=== PATIENT | male | born 1940 | race Caucasian/White ===

== ENCOUNTER 2020-02-24 17:11 | Inpatient (IN) | payer MEDICARE, OTHER ==
[~2020-02-24] VITALS: Ht 185.4 cm; Wt 104.2 kg
[2020-02-24] MEDS ORDERED: MORPHINE SULFATE 4 MG/ML, 1ML ONE (18:18)
[2020-02-24] MEDS ORDERED: ONDANSETRON 2MG/ML, 2ML ONE (18:18)
[2020-02-24 18:29] LABS: BASOPHILS # (AUTO) 0.03 x10^3/uL (0-0.1); BASOPHILS % (AUTO) 0 % (0-1); EOSINOPHILS # (AUTO) 0.18 x10^3/uL (0-0.4); EOSINOPHILS % (AUTO) 2 % (1-7); LYMPHOCYTES % (AUTO) 18 % (22-44); MD NO; MEAN CORPUSCULAR HEMOGLOBIN 29.9 pg (27.5-34.5); MEAN CORPUSCULAR HGB CONC 33.3 g/dL (33.2-36.2); MEAN CORPUSCULAR VOLUME 89.9 fL (81-97); MEAN PLATELET VOLUME 8.9 fL (7.4-10.4); MONOCYTES # (AUTO) 0.47 x10^3/uL (0.2-0.8); MONOCYTES % (AUTO) 6 % (2-9); NEUTROPHILS # (AUTO) 5.78 x10^3/uL (1.8-6.8); NEUTROPHILS % (AUTO) 74 % (42-75); PLATELET COUNT 196 x10^3/uL (130-400); RED BLOOD COUNT 5.37 x10^6/uL (4.38-5.82)
[2020-02-24] MEDS ORDERED: ONDANSETRON 2MG/ML, 2ML IVPush ONE (18:30)
[2020-02-24] MEDS ORDERED: SODIUM CHLORIDE FLUSH 10ML SYR IVF ONE (18:30)
[2020-02-24] MEDS ORDERED: SODIUM CHLORIDE 0.9% 1,000ML IVBOLUS ONE (18:30)
[2020-02-24] MEDS ORDERED: MORPHINE SULFATE 4 MG/ML, 1ML IVPush PRN (18:30)
[2020-02-24 18:41] LABS: ALANINE AMINOTRANSFERASE 24 U/L (12-78); ALBUMIN 3.6 g/dL (3.4-5.0); ANION GAP 6 mmol/L (5-15); CALCIUM 8.9 mg/dL (8.5-10.1); CHLORIDE 106 mmol/L (98-107); CREATININE 1.12 mg/dL (0.7-1.3)
[2020-02-24 18:43] LABS: ALKALINE PHOSPHATASE 77 U/L (45-117); BILIRUBIN,TOTAL 0.7 mg/dL (0.2-1.0); TOTAL PROTEIN 7.5 g/dL (6.4-8.2)
--- NOTE | 2020-02-24 19:00 | NUR ---
PT TO ROOM 9 PER WHEELCHAIR. PT C/O RIGHT FLANK PAIN, AND WAS SENT TO HAVE A CT. PT WAS SENT HERE AFTER RESULTS WERE DONE. PT UNSURE OF WHAT THE ENTIRE CT WAS, BUT WAS TOLD BY ER , THAT NEW SCANS WOULD HAVE TO BE DONE, THEY DID NOT SEND ANY FILMS WITH HIM. IV PLACED, ATTACHED TO MONITOR, GOWN ON, BLANKETS APPLIED, GRAND DAUGHTER AT BEDSIDE. BLOOD DRAWN.
[2020-02-24] MEDS ORDERED: OMNIPAQUE 350 MG/ML, 100ML BOTTLE ONE (19:26)
--- NOTE | 2020-02-24 19:56 | NUR ---
PT BLOOD PRESSURE IS RUNNING HIGH. DR. YOUNG NOTIFIED, NO NEW ORDERS AT THIS TIME.
[2020-02-24] MEDS ORDERED: PIPERACILLIN/TAZO/PMX 3.375GM 50 ML IV ONE ×2 (20:00→21:30)
[2020-02-24 20:16] LABS: MICROSCOPIC NOT IND
[2020-02-24] MEDS ORDERED: PIPERACILLIN/TAZO/PMX 3.375GM 50 ML ONE (20:18)
[2020-02-24 20:20] LABS: CULTURE INDICATED? NO
[2020-02-24] MEDS ORDERED: SODIUM CHLORIDE 0.9% 1,000 ML IV SCH (20:20)
--- NOTE | 2020-02-24 20:31 | NUR ---
PT SENT TO OR WITH OR NURSE, AND FAMILY MEMBER. PT HAS NEW IV STARTED, AND UNASYN SENT.
[2020-02-24 21:07] VITALS: BP 205/94
[2020-02-24] MEDS: hydrALAzine 20 MG/ML, 1ML IVPush PRN (21:19)
[2020-02-24] MEDS: morphine SULFATE 10 MG/ML, 1ML IVPush PRN (21:46)
[2020-02-24 22:34] VITALS: BP 177/87
[2020-02-25] VITALS (8 sets, daily range): BP systolic 169–217; BP diastolic 84–135
[2020-02-25] MEDS: morphine SULFATE 10 MG/ML, 1ML IVPush PRN ×4 (02:23→20:22)
[2020-02-25 05:45] LABS: ANION GAP 5 mmol/L (5-15); CALCIUM 8.3 mg/dL (8.5-10.1); CHLORIDE 108 mmol/L (98-107); CREATININE 1.15 mg/dL (0.7-1.3)
[2020-02-25 06:23] LABS: BASOPHILS # (AUTO) 0.05 x10^3/uL (0-0.1); BASOPHILS % (AUTO) 1 % (0-1); EOSINOPHILS # (AUTO) 0.27 x10^3/uL (0-0.4); EOSINOPHILS % (AUTO) 4 % (1-7); LYMPHOCYTES # (AUTO) 1.74 x10^3/uL (1-3.4); LYMPHOCYTES % (AUTO) 23 % (22-44); MD NO; MEAN CORPUSCULAR HEMOGLOBIN 30.1 pg (27.5-34.5); MEAN CORPUSCULAR HGB CONC 33.2 g/dL (33.2-36.2); MEAN CORPUSCULAR VOLUME 90.8 fL (81-97); MEAN PLATELET VOLUME 9.2 fL (7.4-10.4); MONOCYTES # (AUTO) 0.68 x10^3/uL (0.2-0.8); MONOCYTES % (AUTO) 9 % (2-9); NEUTROPHILS # (AUTO) 4.74 x10^3/uL (1.8-6.8); NEUTROPHILS % (AUTO) 63 % (42-75); PLATELET COUNT 177 x10^3/uL (130-400); RED BLOOD COUNT 4.82 x10^6/uL (4.38-5.82)
[2020-02-25] MEDS: D5%-0.45NACL+KCL 20MEQ 1,000 ML IV SCH ×2 (09:03→19:49)
[2020-02-25] MEDS: hydrALAzine 20 MG/ML, 1ML IVPush PRN ×2 (09:20→14:44)
[2020-02-25] MEDS: ENOXAPARIN 40 MG/0.4 ML SQ SCH (15:44)
[2020-02-25] MEDS ORDERED: hydrALAzine 20 MG/ML, 1ML IV ONE (19:00)
[2020-02-25] MEDS: METOPROLOL SUCCINATE 25 MG TAB.ER.24H PO SCH (21:44)
[2020-02-26 00:53] VITALS: BP 176/103
[2020-02-26] MEDS: morphine SULFATE 10 MG/ML, 1ML IVPush PRN ×4 (01:25→23:03)
[2020-02-26] MEDS: hydrALAzine 20 MG/ML, 1ML IVPush PRN ×3 (01:25→23:27)
[2020-02-26 02:00] VITALS: BP 147/75
[2020-02-26 05:49] LABS: BASOPHILS # (AUTO) 0.03 x10^3/uL (0-0.1); BASOPHILS % (AUTO) 0 % (0-1); EOSINOPHILS # (AUTO) 0.02 x10^3/uL (0-0.4); EOSINOPHILS % (AUTO) 0 % (1-7); LYMPHOCYTES # (AUTO) 0.97 x10^3/uL (1-3.4); LYMPHOCYTES % (AUTO) 13 % (22-44); MD NO; MEAN CORPUSCULAR HEMOGLOBIN 30.4 pg (27.5-34.5); MEAN CORPUSCULAR HGB CONC 33.2 g/dL (33.2-36.2); MEAN CORPUSCULAR VOLUME 91.4 fL (81-97); MEAN PLATELET VOLUME 8.7 fL (7.4-10.4); MONOCYTES # (AUTO) 0.58 x10^3/uL (0.2-0.8); MONOCYTES % (AUTO) 7 % (2-9); NEUTROPHILS % (AUTO) 80 % (42-75); PLATELET COUNT 193 x10^3/uL (130-400); RED BLOOD COUNT 5.12 x10^6/uL (4.38-5.82); RED CELL DISTRIBUTION WIDTH 14.9 % (9.4-14.8)
[2020-02-26 05:56] LABS: ANION GAP 8 mmol/L (5-15); CALCIUM 8.6 mg/dL (8.5-10.1); CHLORIDE 107 mmol/L (98-107)
[2020-02-26] MEDS: D5%-0.45NACL+KCL 20MEQ 1,000 ML IV SCH (05:56)
[2020-02-26 05:58] LABS: CREATININE 1.14 mg/dL (0.7-1.3)
[2020-02-26 07:19] VITALS: BP 178/91
[2020-02-26] MEDS: METOPROLOL SUCCINATE 25 MG TAB.ER.24H PO SCH ×2 (07:48→20:28)
[2020-02-26] MEDS ORDERED: POLYETHYLENE GLYCOL 17 GM PACKET PO SCH (12:00)
[2020-02-26] MEDS: SENNA/DOCUSATE TABLET PO SCH (13:05)
[2020-02-26] MEDS ORDERED: ENALAPRILAT 1.25 MG/ML, 2ML IV PRN (14:00)
[2020-02-26] MEDS ORDERED: GLUCAGON 1 MG IM PRN (14:00)
[2020-02-26] MEDS ORDERED: DEXTROSE 50%, 50ML SYRINGE IVPush PRN (14:00)
[2020-02-26] MEDS ORDERED: ONDANSETRON 2MG/ML, 2ML IVPush PRN (14:00)
[2020-02-26] MEDS ORDERED: POLYETHYLENE GLYCOL 17 GM PACKET PO PRN (14:00)
[2020-02-26] MEDS ORDERED: DEXTROSE 4 GM TAB.CHEW PO PRN (14:00)
[2020-02-26] MEDS ORDERED: ONDANSETRON ODT 4 MG PO PRN (14:00)
[2020-02-26 14:12] VITALS: BP 202/102
[2020-02-26] MEDS: SODIUM CHLORIDE 0.9% 1,000 ML IV SCH (14:59)
[2020-02-26] MEDS: ENOXAPARIN 40 MG/0.4 ML SQ SCH (16:42)
[2020-02-26] MEDS: INSULIN LISPRO 100 UNITS/ML, PEN SQ-INSULIN SCH ×2 (16:43→20:30)
[2020-02-26 18:30] VITALS: BP 176/82
[2020-02-26] MEDS: SODIUM CHLORIDE FLUSH 10ML SYR IVF SCH (20:30)
[2020-02-26 23:03] VITALS: BP 198/95
[2020-02-27 00:25] VITALS: BP 175/86
[2020-02-27] MEDS: SODIUM CHLORIDE 0.9% 1,000 ML IV SCH ×4 (00:26→22:30)
[2020-02-27 05:20] VITALS: BP 190/90
[2020-02-27] MEDS: hydrALAzine 20 MG/ML, 1ML IVPush PRN (05:25)
[2020-02-27 06:42] VITALS: BP 181/93
[2020-02-27] MEDS: SENNA/DOCUSATE TABLET PO SCH (08:44)
[2020-02-27] MEDS: METOPROLOL SUCCINATE 25 MG TAB.ER.24H PO SCH ×2 (08:44→20:16)
[2020-02-27] MEDS: INSULIN LISPRO 100 UNITS/ML, PEN SQ-INSULIN SCH ×4 (08:45→20:17)
[2020-02-27] MEDS: SODIUM CHLORIDE FLUSH 10ML SYR IVF SCH ×2 (08:46→20:18)
[2020-02-27] MEDS ORDERED: LISINOPRIL 10 MG TABLET PO SCH ×2 (09:00→17:00)
[2020-02-27] MEDS ORDERED: VERA240C2 PO (10:36)
[2020-02-27] MEDS ORDERED: ENAL20TA PO (10:47)
[2020-02-27] MEDS: VERAPAMIL ER 240MG TABLET.ER PO SCH (13:40)
[2020-02-27 13:59] VITALS: BP 176/93
[2020-02-27] MEDS: ENOXAPARIN 40 MG/0.4 ML SQ SCH (16:29)
[2020-02-27 18:57] VITALS: BP 165/73
[2020-02-27 20:14] VITALS: BP 165/79
[2020-02-27] MEDS: FAMOTIDINE 20 MG/2 ML IVPush SCH (20:18)
[2020-02-27] MEDS ORDERED: INSULIN GLARGINE 100 UNITS/ML, PEN SQ-INSULIN SCH (21:00)
[2020-02-27] MEDS: morphine SULFATE 10 MG/ML, 1ML IVPush PRN (22:29)
[2020-02-28 00:28] VITALS: BP 155/79
[2020-02-28 05:28] LABS: CHLORIDE 111 mmol/L (98-107)
[2020-02-28 05:39] LABS: ALANINE AMINOTRANSFERASE 14 U/L (12-78); ALBUMIN 2.6 g/dL (3.4-5.0); ALKALINE PHOSPHATASE 55 U/L (45-117); ANION GAP 7 mmol/L (5-15); CALCIUM 8.3 mg/dL (8.5-10.1); CREATININE 1.12 mg/dL (0.7-1.3); TOTAL PROTEIN 5.7 g/dL (6.4-8.2)
[2020-02-28 05:45] LABS: BASOPHILS # (AUTO) 0.03 x10^3/uL (0-0.1); BASOPHILS % (AUTO) 1 % (0-1); EOSINOPHILS # (AUTO) 0.21 x10^3/uL (0-0.4); EOSINOPHILS % (AUTO) 4 % (1-7); LYMPHOCYTES # (AUTO) 1.15 x10^3/uL (1-3.4); LYMPHOCYTES % (AUTO) 21 % (22-44); MD NO; MEAN CORPUSCULAR HEMOGLOBIN 29.8 pg (27.5-34.5); MEAN CORPUSCULAR HGB CONC 33.2 g/dL (33.2-36.2); MEAN CORPUSCULAR VOLUME 89.7 fL (81-97); MEAN PLATELET VOLUME 8.9 fL (7.4-10.4); MONOCYTES # (AUTO) 0.58 x10^3/uL (0.2-0.8); MONOCYTES % (AUTO) 10 % (2-9); NEUTROPHILS # (AUTO) 3.63 x10^3/uL (1.8-6.8); NEUTROPHILS % (AUTO) 65 % (42-75); PLATELET COUNT 179 x10^3/uL (130-400); RED BLOOD COUNT 4.73 x10^6/uL (4.38-5.82); RED CELL DISTRIBUTION WIDTH 14.8 % (9.4-14.8)
[2020-02-28] MEDS: INSULIN LISPRO 100 UNITS/ML, PEN SQ-INSULIN SCH ×2 (07:00→11:06)
[2020-02-28 07:23] VITALS: BP 183/82
[2020-02-28] MEDS: VERAPAMIL ER 240MG TABLET.ER PO SCH (08:21)
[2020-02-28] MEDS: FAMOTIDINE 20 MG/2 ML IVPush SCH (08:21)
[2020-02-28] MEDS: SENNA/DOCUSATE TABLET PO SCH (08:22)
[2020-02-28] MEDS: METOPROLOL SUCCINATE 25 MG TAB.ER.24H PO SCH (08:22)
[2020-02-28] MEDS: SODIUM CHLORIDE FLUSH 10ML SYR IVF SCH (08:23)
[2020-02-28] MEDS ORDERED: ENALAPRIL 20MG TABLET PO SCH ×2 (09:00→21:00)
[2020-02-28 13:05] VITALS: BP 180/81
[2020-02-28] MEDS ORDERED: METO25TA91 PO ×2 (13:44)
[2020-02-28] MEDS ORDERED: INSU100I13 SQ-INSULIN (13:44)
[2020-02-28] MEDS ORDERED: ENAL20TA PO (13:44)
[2020-02-28] MEDS ORDERED: DOCU-131 PO (13:44)
[2020-02-28] MEDS ORDERED: METO-93 PO (13:56)
[2020-02-28] MEDS ORDERED: FAMOTIDINE 20 MG TABLET PO SCH (21:00)
== END 2020-02-28 16:30 | disposition home or self-care (01) | DRG 392 ==
LOC: ED 18:51 → EDIP 20:00 → 3N 20:58
PROVIDERS: ADMIT Internal Medicine; ATTEND Family Medicine
DX: K57.00 Diverticulitis of small intestine with perforation and abscess without bleeding (principal); I16.0 Hypertensive urgency; K43.9 Ventral hernia without obstruction or gangrene; E11.9 Type 2 diabetes mellitus without complications; M16.0 Bilateral primary osteoarthritis of hip; I10 Essential (primary) hypertension; K59.00 Constipation, unspecified; K80.20 Calculus of gallbladder without cholecystitis without obstruction; Z79.4 Long term (current) use of insulin; Z79.899 Other long term (current) drug therapy; Z88.5 Allergy status to narcotic agent; Z88.6 Allergy status to analgesic agent
CPT/HCPCS: 36415; 74177; 74250; 80048; 80053; 80069; 81003; 82962; 83605; 83690; 83735; 84443; 85025; 87040; 93005; 99285; G0378; J1650; J2405; J2543; Q9967; J0360; J1815; J2270; J3480; J3490; J7030